=== PATIENT | female | born 1960 | race Caucasian/White ===

== ENCOUNTER 2017-08-04 18:29 | Observation (INO) | payer BC, MEDICARE ==
[2017-08-04] MEDS: NS 0.9% 1000 ML* 2,000 ML IV ONE ×2 (20:47→20:50)
--- NOTE | 2017-08-04 20:56 | RAD ---
INDICATION: Weakness COMPARISON: CT brain April 13, 2016 TECHNIQUE: Noncontrast axial source images were acquired from the skull base to the vertex. FINDINGS: Ventricles/sulci: The ventricles and cisterns are normal in size and configuration for age. Brain parenchyma: There is no focal parenchymal finding, evidence of intracranial mass, or intracranial mass effect. Intracranial hemorrhage:None. Extra-axial spaces: There are no abnormal extra axial fluid collections or evidence of extra-axial mass. Calvarium: There is no calvarial fracture or other calvarial abnormality. Scalp: There is no evidence of scalp or extracalvarial soft tissue abnormality. Paranasal sinuses/mastoid: The paranasal sinuses and mastoid air cells are clear. Other: None. IMPRESSION: NEGATIVE EXAMINATION
--- NOTE | 2017-08-04 20:57 | RAD ---
INDICATION: Weakness COMPARISON: None TECHNIQUE: A single PA image is submitted. FINDINGS: Bones/Soft Tissues: There are no acute bony findings. Cardiomediastinal: The cardiomediastinal silhouette is normal. Lungs: There are no infiltrates. Pleura: There are no pleural effusions. Other: None IMPRESSION: NO ACTIVE DISEASE.
[2017-08-04 20:59] LABS: Urine Bilirubin Negative (Negative); Urine Glucose 3+(>=500 mg/dL) (Negative); Urine Nitrite Negative (Negative)
[2017-08-04 21:14] LABS: Hematocrit 38 % (35-47); Hemoglobin 12.7 g/dl (12.0-16.0); Mean Corpuscular HGB Conc 33 g/dl (31-36); Mean Corpuscular Hemoglobin 29 pg (27-31); Mean Corpuscular Volume 88 fL (80-97); Mean Platelet Volume 10 um3 (7.4-10.4); Red Blood Count 4.35 10^6/ul (4.0-5.4); Red Cell Distribution Width 14 % (10.5-15); White Blood Count 10.8 10^3/ul (3.5-10.8)
[2017-08-04 21:31] LABS: ALT 20 U/L (7-52); AST 17 U/L (13-39); Albumin 3.6 g/dL (3.2-5.2); Alkaline Phosphatase 34 U/L (34-104); Anion Gap 4 mmol/L (2-11); BUN/Creatinine Ratio 11.4 (8-20); Blood Urea Nitrogen 9 mg/dL (6-24); C Reactive Protein 7.83 mg/L (< 5.00); CO2 Carbon Dioxide 31 mmol/L (22-32); Calcium 8.8 mg/dL (8.6-10.3); Chloride 104 mmol/L (101-111); Creatine Kinase 131 U/L (10-223); EGFR African American 96.8 (>60); EGFR Non-African American 75.3 (>60); Globulin 2.9 g/dL (2-4); Glucose 288 mg/dL (70-100); Lipase 32 U/L (11.0-82.0); Magnesium 1.4 mg/dL (1.9-2.7); Potassium 4.1 mmol/L (3.5-5.0); Sodium 139 mmol/L (133-145); Total Protein 6.5 g/dL (6.4-8.9)
[2017-08-04 21:40] LABS: B Type Natriuretic Peptide 268 pg/mL
[2017-08-04 22:00] LABS: Acetaminophen < 15 mcg/mL; Alcohol < 10 mg/dL (<10)
--- NOTE | 2017-08-04 22:11 | ED ---
Griffin Diaz Abhishek, scribed for Sandoval Tavarez MD on 08/04/17 at 2053 . Neurological HPI - HPI Summary HPI Summary: This patient is a 56 year old F presenting to [facility] from [facility] accompanied by male with a chief complaint of neurological deficit since yesterday. The CC is described as a sudden onset and worse since today morning. The patient rates the pain 0/10 in severity. Symptoms aggravated by nothing. Symptoms alleviated by nothing. Patient reports urinary frequency, unsteady gait, fatigue, dry throat, sore throat, RAMOS, productive cough (clear), ambulatory. Pt states she has fallen 2 times, once yesterday and once today, and that she was unable to get up for hours. Patient denies chills, neck pain, decreased appetite, and abd pain. PMHx of HTN, and DM. Pt denies PMHx of CHF. - History of Current Complaint Chief Complaint: EDWeakness Stated Complaint: FALL/DIZZY/SLURRED SPEECH Time Seen by Provider: 08/04/17 20:08 Hx Obtained From: Patient, Family/Freelance Court Stenographer Onset/Duration: Sudden Onset - yesterday, Started days ago - since yesterday, Still Present, Worse Since - today morning Timing: Constant Neurological Deficit Location: Generalized - weakness Pain Intensity: 0 Pain Scale Used: 0-10 Numeric Character: Weak, Motor Weakness - pt reports unsteady gait, Typical Migraine Aggravating: Nothing Alleviating: Nothing Associated Signs and Symptoms: Positive: Unsteady Gait, Headache, Weakness, Nothing - frequency in urination, fatigue, dry throat, sore throat. Negative chills, and abd pain. Negative: Decreased Oral Intake, Fever, Neck Pain/ Stiffness - Allergy/Home Medications Allergies/Adverse Reactions: Allergies Allergy/AdvReac Type Severity Reaction Status Date / Time No Known Allergies Allergy Verified 04/13/16 10:37 PMH/Surg Hx/FS Hx/Imm Hx Endocrine/Hematology History: Reports: Hx Diabetes Cardiovascular History: Reports: Hx Hypertension Denies: Hx Congenital Heart Disease, Hx Pacemaker/ICD Respiratory History: Denies: Hx Asthma Sensory History: Denies: Hx Hearing Aid Neurological History: Reports: Other Neuro Impairments/Disorders - "brain tumor " Psychiatric History: Reports: Hx Anxiety Denies: Hx Panic Disorder - Surgical History Surgery Procedure, Year, and Place: LAP JERRY/2 C SECTIONS/GLAUCOMA LASER SURGERY FROM [facility] - Immunization History Date of Tetanus Vaccine: Unk Date of Influenza Vaccine: None Infectious Disease History: No Infectious Disease History: Denies: Traveled Outside the [place] in Last 30 Days - Family History Known Family History: Positive: Other - CVA (mother) - Social History Alcohol Use: None Substance Use Type: Reports: Prescribed Substance Use Comment - Amount & Last Used: soma, xanax, lyrica Hx Tobacco Use: Yes Smoking Status (MU): Heavy Every Day Tobacco Smoker Review of Systems Positive: Fatigue. Negative: Fever, Chills Eyes: Negative ENT: Other - dry throat Positive: Sore Throat Cardiovascular: Negative Positive: Cough - productive (clear) Positive: Other - negative decreased appetite. Negative: Abdominal Pain Positive: frequency - urination Positive: Other - unsteady gait but ambulatory. Negative neck pain Skin: Negative Positive: Headache Psychological: Normal All Other Systems Reviewed And Are Negative: Yes Physical Exam - Summary Physical Exam Summary: General: well-appearing, no pain distress Skin: warm, color reflects adequate perfusion, dry Head: normal Eyes: EOMI, [place] ENT: oral mucosa dry Neck: supple, nontender Respiratory: rhonchi bilaterally Cardiovascular: RRR Abdomen: soft, nontender Bowel: present Musculoskeletal: trace pedal edema Neurological: generalized weakness, equal weakness on both sides, no sensation deficits Psychological: affect/mood appropriate Triage Information Reviewed: Yes Vital Signs On Initial Exam: Initial Vitals Temp Pulse Resp BP Pulse Ox 98.6 F 109 20 132/82 92 08/04/17 18:32 08/04/17 18:32 08/04/17 18:32 08/04/17 18:32 08/04/17 18:32 Vital Signs Reviewed: Yes Diagnostics - Vital Signs Vital Signs Temp Pulse Resp BP Pulse Ox 08/04/17 18:32 98.6 F 109 20 132/82 92 - Laboratory Lab Results: Lab Results 08/04/17 08/04/17 08/04/17 Range/Units 20:30 21:04 21:04 WBC (3.5-10.8) 10^3/ul RBC (4.0-5.4) 10^6/ul Hgb (12.0-16.0) g/dl Hct (35-47) % MCV (80-97) fL MCH (27-31) pg MCHC (31-36) g/dl RDW (10.5-15) % Plt Count (150-450) 10^3/ul MPV (7.4-10.4) um3 Neut % (Auto) (38-83) % Lymph % (Auto) (25-47) % [place] % (Auto) (1-9) % Eos % (Auto) (0-6) % Baso % (Auto) (0-2) % Absolute Neuts (auto) (1.5-7.7) 10^3/ul Absolute Lymphs (auto) (1.0-4.8) 10^3/ul Absolute Monos (auto) (0-0.8) 10^3/ul Absolute Eos (auto) (0-0.6) 10^3/ul Absolute Basos (auto) (0-0.2) 10^3/ul Absolute Nucleated RBC 10^3/ul Nucleated RBC % INR (Anticoag Therapy) 1.01 (0.89-1.11) APTT 38.8 H (26.0-36.3) seconds Sodium 139 (133-145) mmol/L Potassium 4.1 (3.5-5.0) mmol/L Chloride 104 (101-111) mmol/L Carbon Dioxide 31 (22-32) mmol/L Anion Gap 4 (2-11) mmol/L BUN 9 (6-24) mg/dL Creatinine 0.79 (0.51-0.95) mg/dL Est GFR ( Amer) 96.8 (>60) Est GFR (Non-Af Amer) 75.3 (>60) BUN/Creatinine Ratio 11.4 (8-20) Glucose 288 H (70-100) mg/dL Lactic Acid (0.5-2.0) mmol/L Calcium 8.8 (8.6-10.3) mg/dL Magnesium 1.4 L (1.9-2.7) mg/dL Total Bilirubin 0.30 (0.2-1.0) mg/dL AST 17 (13-39) U/L ALT 20 (7-52) U/L Alkaline Phosphatase 34 (34-104) U/L Ammonia Total Creatine Kinase 131 (10-223) U/L CK-MB (CK-2) 3.1 (0.6-6.3) ng/mL Troponin I 0.00 (<0.04) ng/mL C-Reactive Protein 7.83 H (< 5.00) mg/L B-Natriuretic Peptide ( - 100) pg/mL Total Protein 6.5 (6.4-8.9) g/dL Albumin 3.6 (3.2-5.2) g/dL Globulin 2.9 (2-4) g/dL Albumin/Globulin Ratio 1.2 (1-3) Lipase 32 (11.0-82.0) U/L TSH Pending Urine Color Yellow Urine Appearance Clear Urine pH 5.0 (5-9) Ur Specific [place] 1.009 L (1.010-1.030) Urine Protein Negative (Negative) Urine Ketones Negative (Negative) Urine Blood Negative (Negative) Urine Nitrate Negative (Negative) Urine Bilirubin Negative (Negative) Urine Urobilinogen Negative (Negative) Ur Leukocyte Esterase Negative (Negative) Urine Glucose 3+(>=500 mg/dl) H (Negative) Acetaminophen < 15 mcg/mL Serum Alcohol < 10 (<10) mg/dL 08/04/17 08/04/17 08/04/17 Range/Units 21:04 21:04 21:04 WBC 10.8 (3.5-10.8) 10^3/ul RBC 4.35 (4.0-5.4) 10^6/ul Hgb 12.7 (12.0-16.0) g/dl Hct 38 (35-47) % MCV 88 (80-97) fL MCH 29 (27-31) pg MCHC 33 (31-36) g/dl RDW 14 (10.5-15) % Plt Count 186 (150-450) 10^3/ul MPV 10 (7.4-10.4) um3 Neut % (Auto) 69.3 (38-83) % Lymph % (Auto) 19.8 L (25-47) % [place] % (Auto) 8.7 (1-9) % Eos % (Auto) 1.5 (0-6) % Baso % (Auto) 0.7 (0-2) % Absolute Neuts (auto) 7.5 (1.5-7.7) 10^3/ul Absolute Lymphs (auto) 2.1 (1.0-4.8) 10^3/ul Absolute Monos (auto) 0.9 H (0-0.8) 10^3/ul Absolute Eos (auto) 0.2 (0-0.6) 10^3/ul Absolute Basos (auto) 0.1 (0-0.2) 10^3/ul Absolute Nucleated RBC 0.01 10^3/ul Nucleated RBC % 0.1 INR (Anticoag Therapy) (0.89-1.11) APTT (26.0-36.3) seconds Sodium (133-145) mmol/L Potassium (3.5-5.0) mmol/L Chloride (101-111) mmol/L Carbon Dioxide (22-32) mmol/L Anion Gap (2-11) mmol/L BUN (6-24) mg/dL Creatinine (0.51-0.95) mg/dL Est GFR ( Amer) (>60) Est GFR (Non-Af Amer) (>60) BUN/Creatinine Ratio (8-20) Glucose (70-100) mg/dL Lactic Acid 2.1 H* (0.5-2.0) mmol/L Calcium (8.6-10.3) mg/dL Magnesium (1.9-2.7) mg/dL Total Bilirubin (0.2-1.0) mg/dL AST (13-39) U/L ALT (7-52) U/L Alkaline Phosphatase (34-104) U/L Ammonia TNP Total Creatine Kinase (10-223) U/L CK-MB (CK-2) (0.6-6.3) ng/mL Troponin I (<0.04) ng/mL C-Reactive Protein (< 5.00) mg/L B-Natriuretic Peptide 268 H ( - 100) pg/mL Total Protein (6.4-8.9) g/dL Albumin (3.2-5.2) g/dL Globulin (2-4) g/dL Albumin/Globulin Ratio (1-3) Lipase (11.0-82.0) U/L TSH Urine Color Urine Appearance Urine pH (5-9) Ur Specific [place] (1.010-1.030) Urine Protein (Negative) Urine Ketones (Negative) Urine Blood (Negative) Urine Nitrate (Negative) Urine Bilirubin (Negative) Urine Urobilinogen (Negative) Ur Leukocyte Esterase (Negative) Urine Glucose (Negative) Acetaminophen mcg/mL Serum Alcohol (<10) mg/dL Result Diagrams: 08/04/17 21:04 08/04/17 21:04 Lab Statement: Any lab studies that have been ordered have been reviewed, and results considered in the medical decision making process. - Radiology Chest X-ray Radiology Interpretation Completed By: Radiologist - CXR reveals NO ACTIVE DISEASE. ED physician has reviewed this radiology report and agrees. - CT Brain CT CT Interpretation Completed By: Radiologist - Brain CT reveals NEGATIVE EXAMINATION. ED physician has reviewed this radiology report and agrees. - EKG 2052 Cardiac Rate: NL EKG Interpretation: 96 bpm, normal ST with no elevation Course/Dx - Course Course Of Treatment: ADMIT HOSPITALIST. CRITICAL CARE TIME LESS THAN 30 MINUTES - Diagnoses Provider Diagnoses: Altered mental state, Weakness, Hypoxia Discharge - Discharge Plan Condition: Stable Disposition: ADMITTED TO [facility] Referrals: Rogelio Tellez MD [Primary Care Provider] - The documentation as recorded by the Griffin tyson Abhishek accurately reflects the service I personally performed and the decisions made by me, Sandoval Tavarez MD.
[2017-08-04 22:15] LABS: TSH (Thyroid Stimulating Horm) 0.46 mcIU/mL (0.34-5.60)
[2017-08-04] MEDS ORDERED: Dextrose 50% Syringe 50 ML* 25 GM/50 ML SYRINGE IV PUSH PRN (23:26)
[2017-08-04] MEDS ORDERED: Acetaminophen TAB* 325 MG PO PRN (23:26)
[2017-08-04] MEDS ORDERED: Ondansetron INJ* 2 MG/ML VIAL IV PRN (23:26)
[2017-08-04] MEDS ORDERED: Magnesium Sulfate 2 GM IV* 2 GM/50 ML BAG IVPB ONE (23:30)
[2017-08-04] MEDS ORDERED: Azithromycin IV(*) 500 MG in NS 0.9% 250 ML* 250 ML IVPB SCH (23:45)
[2017-08-05] MEDS: Albuterol 2.5 MG/3 ML NEB.SOL* (0.083%) INH PRN ×2 (00:15→06:09)
[2017-08-05 00:45] LABS: FIO2 3; PCO2 Arterial 59 mmHg (35-45)
--- NOTE | 2017-08-05 01:24 | HP ---
CC: Rogelio Tellez MD * HISTORY AND PHYSICAL: DATE OF ADMISSION: 08/04/17 PRIMARY CARE PROVIDER: Rogelio Tellez MD ATTENDING PHYSICIAN WHILE IN THE HOSPITAL: Marlon Begum MD * (report dictated by Blayne Huff NP). CHIEF COMPLAINT: 1. Drowsiness. 2. Difficulty with mentation. HISTORY OF PRESENT ILLNESS: Ms. Mendez is a 56-year-old female patient that comes into our ER today. According to the , he left around 5:30 this morning for work and when he left the patient, she was noted to be drowsy, lethargic. There were reports of cough. Recently, the patient did undergo a flu shot. There has been no reported fevers. There has been no chest pain or shortness of breath. Apparently, she did fall yesterday and once today. There were reports of her just not acting herself, was acting very drowsy, lethargic, not interactive, normally is very talkative according to the patient. The patient was reevaluated this afternoon by her and he was concerned and felt that she should come into the ER today to be evaluated because she just was not acting herself. The patient was evaluated down here. It was noted that she was requiring O2 at times. She said she has been taking her medications as prescribed. She does not have any changes in medications. However, she does feel that she is tired. She was evaluated in the ED. There was a concern for the altered mentation. We were asked to evaluate for admission. PAST MEDICAL HISTORY: Significant for: 1. Diabetes. 2. Chronic pain. 3. Anxiety. 4. Neuropathy. PAST SURGICAL HISTORY: 1. She has had a . 2. Laparoscopic cholecystectomy. HOME MEDICATIONS: According to the last list in our computer system includes: 1. Metformin 1000 mg p.o. b.i.d. 2. Klonopin 1 mg p.o. at bedtime as needed. 3. Januvia 50 mg daily. 4. Lyrica 50 mg p.o. b.i.d. 5. Opana 5 mg p.o. t.i.d. to 4 times a day. 6. Menthol 4% topical t.i.d. 7. Lantus 18 units subcu q.p.m. 8. Soma 350 mg p.o. b.i.d. as needed. 9. Albuterol 2 puffs inhalation every 6 hours as needed. 10. Xanax 1 mg p.o. every 6 hours. We will need to update this med record as again, she is unable to really give an accurate one. ALLERGIES TO MEDICATIONS: Include no known drug allergies. FAMILY HISTORY: Father had a history of cancer. SOCIAL HISTORY: The patient is a half pack a day smoker. She has smoked for about 40 years. She does not drink alcohol. There are no reports for recreational drugs. The patient's surrogate decision maker is her . REVIEW OF SYSTEMS: There is no documented fever. She does admit to having a cough at times. It has been productive of a yellow type sputum. She denies any recent sick contacts. Does admit to having a recent flu shot. No chest pain or shortness of breath. No abdominal pain. No nausea, no vomiting. She does admit to having some dysuria. The does state that she was incontinent earlier today. She could not hold her urine going to the bathroom. There was no loss of consciousness. No pruritus or skin ulcerations. Review of systems 14 completed, all others negative. PHYSICAL EXAMINATION GENERAL: At this time, Ms. Mendez is a 56-year-old female patient. She is seen in the ER stretcher. She does not appear to be in acute distress. She will awaken to her name. She will follow simple commands. She appears to be well nourished, well developed. VITAL SIGNS: Blood pressure 107/61 with a pulse of 87, respirations 14, O2 saturation now 96% on 2 L, temperature was 98.6. HEENT: Head is atraumatic, normocephalic. Eyes: Sclerae anicteric and not pale. Pupils are reactive to light. Throat: Oral mucosa appears to be dry. No oropharyngeal erythema. NECK: Supple. HEART: Sounds S1, S2. Regular rate and rhythm. No murmurs, rubs or gallops. LUNGS: She did have crackles in the right upper lobe. She had equal diaphragmatic expansion. ABDOMEN: Soft, flat, nontender. Bowel sounds are present. EXTREMITIES: Pulses were 2+ throughout. She is moving all 4 extremities. NEUROLOGIC: She will awaken. She is drowsy. She is oriented to person, place , and time. Her cook helper preserves are equal. Tongue is midline. Speech is slow, but it is clear, it is not slurred. There is no facial drooping. [id number] was intact bilaterally. No gross focal deficits. SKIN: Grossly intact. LABORATORY DATA/DIAGNOSTIC DATA: WBC 10.8, RBC of 4.35, hemoglobin 12.7, hematocrit of 38, platelet count of 186. INR of 1.01, PTT of 38.8. Sodium 139 , potassium 4.1, chloride 104, bicarbonate 30, BUN 9, creatinine 0.79, glucose 282. Lactic 2.1, calcium 8.8, mag 1.4, total bilirubin 0.3. AST 17, ALT 20, alk phos 34. Ammonia pending. CK 131, CK-MB 3.1, troponin 0. CRP 7.89. Albumin is 3.6, TSH of 0.46. Urine was obtained, showed 3+ glucose. Toxicology negative thus far, but drug screen is pending. Brain CT obtained today, which revealed negative exam. Chest x-ray showed no active disease. EKG shows a normal sinus rhythm, rate of 96. No ST elevation or T wave inversions. Old medical records were reviewed. ASSESSMENT AND PLAN: Ms. Mendez is a 56-year-old female patient, coming in to the ER today, complaints of drowsiness and fatigue, altered mental status. She will be admitted under observation status for: 1. Altered mental status. The etiology is unclear. She has no gross focal deficits on my exam here. I think this is probably polypharmacy related. I did offer Narcan. The patient refused this as she has had this in the past. She did not like the way it made her feel. When I walked in, was asking for her pain medication and I explained to her, I said we strictly need to hold her pain meds because this could be certainly contributing to her mentation. I would like get an ABG as well to make sure she is not holding on any CO2. She will awaken to her name and follow commands. I am doing neuro checks. If she is not improved, I would have a low threshold for MRI and Neurology consult, but I would like to hold the meds for 24 hours and see how she responds. Again , I do think this could be polypharmacy and she may need to reduce these medications. 2. Diabetes. We will put on lispro sliding scale. 3. Anxiety and depression, continue with supportive care. 4. Chronic pain. Again, I am holding her narcotics at this point. 5. Neuropathy. I will hold her meds for the time being, will be started once she is able. 6. DVT prophylaxis. She will be placed on heparin subcu. 7. Code status. Full code. 8. Fluids, electrolytes, and nutrition. She can have a consistent carb diet. 9. Hypomagnesemia. We will go ahead and replace her mag. 10. Bronchitis. I do suspect that she does have bronchitis. She does have some rhonchi in the upper lobe on the right side, so I am go ahead and put her on azithromycin. TIME SPENT: Time spent on the admission was approximately 60 minutes, greater than half that time was spent [id number] with the patient obtaining my history and physical, the other half time was time was spent going over the plan of care with the patient and implementing the plan of care. I did discuss the plan of care with my attending, Dr. Begum, he is in agreement. BLAYNE HUFF, GABRIEL [id number]/CPS #: [id number] MAURICIO
[2017-08-05] MEDS: Heparin VIAL(*) 5000 UNITS/ML VIAL (FIVE THOUSAND) SUBCUT SCH ×2 (05:24→14:31)
[2017-08-05 08:10] LABS: Hematocrit 36 % (35-47); Hemoglobin 11.8 g/dl (12.0-16.0); Mean Corpuscular HGB Conc 33 g/dl (31-36); Mean Corpuscular Hemoglobin 29 pg (27-31); Mean Corpuscular Volume 87 fL (80-97); Mean Platelet Volume 10 um3 (7.4-10.4); Red Blood Count 4.09 10^6/ul (4.0-5.4); Red Cell Distribution Width 14 % (10.5-15); White Blood Count 10.3 10^3/ul (3.5-10.8)
[2017-08-05 08:25] LABS: BUN/Creatinine Ratio 14.5 (8-20); Calcium 8.4 mg/dL (8.6-10.3); EGFR African American 113.2 (>60); Potassium 4.2 mmol/L (3.5-5.0)
[2017-08-05] MEDS: Insulin LISPRO* 1 UNITS UNIT SUBCUT SCH ×2 (08:48→12:31)
--- NOTE | 2017-08-05 09:19 | PN ---
Subjective Date of Service: 08/05/17 Interval History: C/O pain in her legs, requests narcotics and clonazepam. Objective Active Medications: Acetaminophen (Tylenol Tab*) 650 mg PO Q4H PRN PRN Reason: FEVER/PAIN Last Admin: 08/05/17 05:23 Dose: 650 mg Albuterol (Ventolin 2.5 Mg/3 Ml Neb.Allie*) 2.5 mg INH Q2H PRN PRN Reason: SOB/WHEEZING Last Admin: 08/05/17 06:09 Dose: 2.5 mg Clonazepam (Klonopin Tab(*)) 0.5 mg PO TID [facility] Dextrose (D50w Syringe 50 Ml*) 12.5 gm IV PUSH .FOR FS < 60 - SS PRN PRN Reason: FS < 60 Heparin Sodium (Porcine) (Heparin Vial(*)) 5,000 units SUBCUT Q8HR [facility] Last Admin: 08/05/17 05:24 Dose: 5,000 units Azithromycin 500 mg/ Sodium (Chloride) 250 mls @ 250 mls/hr IVPB Q24H [facility] Last Admin: 08/04/17 23:54 Dose: 250 mls/hr Insulin Glargine (Lantus(*)) 18 units SUBCUT QPM [facility] Insulin Human Lispro (Humalog*) 0 units SUBCUT AC MARK PRN Reason: Protocol Last Admin: 08/05/17 08:48 Dose: 6 units Ondansetron HCl (Zofran Inj*) 4 mg IV Q6H PRN PRN Reason: NAUSEA Vital Signs 08/04/17 08/05/17 08/05/17 23:30 00:00 00:01 Temperature Pulse Rate 88 89 Respiratory 18 19 Rate Blood Pressure 102/56 100/45 (mmHg) O2 Sat by Pulse 99 99 Oximetry 08/05/17 08/05/17 08/05/17 00:02 00:16 00:30 Temperature Pulse Rate 89 91 92 Respiratory 21 21 22 Rate Blood Pressure 118/65 (mmHg) O2 Sat by Pulse 99 100 99 Oximetry 08/05/17 08/05/17 08/05/17 00:52 05:18 06:09 Temperature 97.6 F 98.0 F Pulse Rate 94 101 97 Respiratory 18 18 22 Rate Blood Pressure 125/68 130/73 (mmHg) O2 Sat by Pulse 95 95 98 Oximetry 08/05/17 08/05/17 06:12 07:21 Temperature 98.5 F Pulse Rate 97 86 Respiratory 98 14 Rate Blood Pressure 107/51 (mmHg) O2 Sat by Pulse 20 92 Oximetry Oxygen Devices in Use Now: None, Nasal Cannula Appearance: Head partly up in bed, eyes closed. Responds in a soft voice. ? looks comfortable not moving. Eyes: No Scleral Icterus Ears/Nose/Mouth/Throat: Clear Oropharnyx, Mucous Membranes Moist Neck: NL Appearance and Movements; NL JVP, No Thyroid Enlargement, Masses Respiratory: Symmetrical Chest Expansion and Respiratory Effort, Clear to Auscultation, Clear to Percussion Cardiovascular: NL Sounds; No Murmurs; No JVD, RRR, No Edema, - Abdominal: NL Sounds; No Tenderness; No Distention, No Hepatosplenomegaly, - Extremities: No Edema, No Clubbing, Cyanosis, - Skin: No Rash or Ulcers, No Nodules or Sclerosis, - Neurological: Alert and Oriented x 3, NL Sensation Result Diagrams: 08/05/17 07:46 08/05/17 07:46 Additional Lab and Data: Lab Results 08/04/17 08/04/17 08/04/17 Range/Units 20:30 21:04 21:04 WBC (3.5-10.8) 10^3/ul RBC (4.0-5.4) 10^6/ul Hgb (12.0-16.0) g/dl Hct (35-47) % MCV (80-97) fL MCH (27-31) pg MCHC (31-36) g/dl RDW (10.5-15) % Plt Count (150-450) 10^3/ul MPV (7.4-10.4) um3 Neut % (Auto) (38-83) % Lymph % (Auto) (25-47) % [place] % (Auto) (1-9) % Eos % (Auto) (0-6) % Baso % (Auto) (0-2) % Absolute Neuts (auto) (1.5-7.7) 10^3/ul Absolute Lymphs (auto) (1.0-4.8) 10^3/ul Absolute Monos (auto) (0-0.8) 10^3/ul Absolute Eos (auto) (0-0.6) 10^3/ul Absolute Basos (auto) (0-0.2) 10^3/ul Absolute Nucleated RBC 10^3/ul Nucleated RBC % INR (Anticoag Therapy) 1.01 (0.89-1.11) APTT 38.8 H (26.0-36.3) seconds Sodium 139 (133-145) mmol/L Potassium 4.1 (3.5-5.0) mmol/L Chloride 104 (101-111) mmol/L Carbon Dioxide 31 (22-32) mmol/L Anion Gap 4 (2-11) mmol/L BUN 9 (6-24) mg/dL Creatinine 0.79 (0.51-0.95) mg/dL Est GFR ( Amer) 96.8 (>60) Est GFR (Non-Af Amer) 75.3 (>60) BUN/Creatinine Ratio 11.4 (8-20) Glucose 288 H (70-100) mg/dL Lactic Acid (0.5-2.0) mmol/L Calcium 8.8 (8.6-10.3) mg/dL Magnesium 1.4 L (1.9-2.7) mg/dL Total Bilirubin 0.30 (0.2-1.0) mg/dL AST 17 (13-39) U/L ALT 20 (7-52) U/L Alkaline Phosphatase 34 (34-104) U/L Ammonia Total Creatine Kinase 131 (10-223) U/L CK-MB (CK-2) 3.1 (0.6-6.3) ng/mL Troponin I 0.00 (<0.04) ng/mL C-Reactive Protein 7.83 H (< 5.00) mg/L B-Natriuretic Peptide ( - 100) pg/mL Total Protein 6.5 (6.4-8.9) g/dL Albumin 3.6 (3.2-5.2) g/dL Globulin 2.9 (2-4) g/dL Albumin/Globulin Ratio 1.2 (1-3) Lipase 32 (11.0-82.0) U/L TSH Pending Urine Color Yellow Urine Appearance Clear Urine pH 5.0 (5-9) Ur Specific Basco 1.009 L (1.010-1.030) Urine Protein Negative (Negative) Urine Ketones Negative (Negative) Urine Blood Negative (Negative) Urine Nitrate Negative (Negative) Urine Bilirubin Negative (Negative) Urine Urobilinogen Negative (Negative) Ur Leukocyte Esterase Negative (Negative) Urine Glucose 3+(>=500 mg/dl) H (Negative) Acetaminophen < 15 mcg/mL Serum Alcohol < 10 (<10) mg/dL 08/04/17 08/04/17 08/04/17 Range/Units 21:04 21:04 21:04 WBC 10.8 (3.5-10.8) 10^3/ul RBC 4.35 (4.0-5.4) 10^6/ul Hgb 12.7 (12.0-16.0) g/dl Hct 38 (35-47) % MCV 88 (80-97) fL MCH 29 (27-31) pg MCHC 33 (31-36) g/dl RDW 14 (10.5-15) % Plt Count 186 (150-450) 10^3/ul MPV 10 (7.4-10.4) um3 Neut % (Auto) 69.3 (38-83) % Lymph % (Auto) 19.8 L (25-47) % [place] % (Auto) 8.7 (1-9) % Eos % (Auto) 1.5 (0-6) % Baso % (Auto) 0.7 (0-2) % Absolute Neuts (auto) 7.5 (1.5-7.7) 10^3/ul Absolute Lymphs (auto) 2.1 (1.0-4.8) 10^3/ul Absolute Monos (auto) 0.9 H (0-0.8) 10^3/ul Absolute Eos (auto) 0.2 (0-0.6) 10^3/ul Absolute Basos (auto) 0.1 (0-0.2) 10^3/ul Absolute Nucleated RBC 0.01 10^3/ul Nucleated RBC % 0.1 INR (Anticoag Therapy) (0.89-1.11) APTT (26.0-36.3) seconds Sodium (133-145) mmol/L Potassium (3.5-5.0) mmol/L Chloride (101-111) mmol/L Carbon Dioxide (22-32) mmol/L Anion Gap (2-11) mmol/L BUN (6-24) mg/dL Creatinine (0.51-0.95) mg/dL Est GFR ( Amer) (>60) Est GFR (Non-Af Amer) (>60) BUN/Creatinine Ratio (8-20) Glucose (70-100) mg/dL Lactic Acid 2.1 H* (0.5-2.0) mmol/L Calcium (8.6-10.3) mg/dL Magnesium (1.9-2.7) mg/dL Total Bilirubin (0.2-1.0) mg/dL AST (13-39) U/L ALT (7-52) U/L Alkaline Phosphatase (34-104) U/L Ammonia TNP Total Creatine Kinase (10-223) U/L CK-MB (CK-2) (0.6-6.3) ng/mL Troponin I (<0.04) ng/mL C-Reactive Protein (< 5.00) mg/L B-Natriuretic Peptide 268 H ( - 100) pg/mL Total Protein (6.4-8.9) g/dL Albumin (3.2-5.2) g/dL Globulin (2-4) g/dL Albumin/Globulin Ratio (1-3) Lipase (11.0-82.0) U/L TSH Urine Color Urine Appearance Urine pH (5-9) Ur Specific Basco (1.010-1.030) Urine Protein (Negative) Urine Ketones (Negative) Urine Blood (Negative) Urine Nitrate (Negative) Urine Bilirubin (Negative) Urine Urobilinogen (Negative) Ur Leukocyte Esterase (Negative) Urine Glucose (Negative) Acetaminophen mcg/mL Serum Alcohol (<10) mg/dL Assess/Plan/Problems-Billing Assessment: - Patient Problems (1) Lethargy Current Visit: Yes Status: Acute Code(s): R53.83 - OTHER FATIGUE SNOMED Code(s): 224611026 Comment: Likely related to multiple sedating meds. Hold mirtazapine, oxymorphone. Half-dose of her clonazepam. (2) Chronic pain Current Visit: Yes Status: Acute Code(s): G89.29 - OTHER CHRONIC PAIN SNOMED Code(s): 24415003 Comment: Hold oxymorphone due to lethargy, hypercarbia. (3) Hypercarbia Current Visit: Yes Status: Acute Code(s): R06.89 - OTHER ABNORMALITIES OF BREATHING SNOMED Code(s): 58706960 Comment: Repeat ABG's. Hold sedating meds except for half-dose clonazepam. (4) Tobacco abuse Current Visit: Yes Status: Acute Code(s): Z72.0 - TOBACCO USE SNOMED Code( s): 284568977 Comment: Pt advised to quit smoking and avoid second hand smoke. (5) Diabetes Current Visit: Yes Status: Acute Code(s): E11.9 - TYPE 2 DIABETES MELLITUS WITHOUT COMPLICATIONS SNOMED Code(s): 18546950 Comment: Lantus and SSI ordered.
[2017-08-05 09:58] LABS: PCO2 Arterial 51 mmHg (35-45)
[2017-08-05] MEDS: clonazePAM TAB(*) 0.5 MG PO SCH ×2 (10:02→14:29)
[2017-08-05] MEDS: oxyCODONE TAB* 5 MG TAB PO PRN ×2 (12:30→16:30)
[2017-08-05 13:54] LABS: Urine Bilirubin Negative (Negative); Urine Glucose 3+(>=500 mg/dL) (Negative); Urine Nitrite Negative (Negative)
[2017-08-05 14:15] LABS: Benzodiazepine Urine Screen None Detected (None Detect)
[2017-08-05 16:38] VITALS: BP 113/56
--- NOTE | 2017-08-05 17:03 | PN ---
Progress Note - Progress Note Date of Service: 08/05/17 Note: Patient seen again at 16:45. She is requesting dishcarge. She is standing by her bed, alert, in good spirits. She is breathing quietly and comfortably. Her affect is appropriate. She is a completely different person than she was this AM. She is very concerned about finding out what happened to her. She uses an electric safe to dispense her medications. She filled it about 2 weeks ago. She took nothing other than what her safe dispenses. She has electric heat--no fumes. Her doen't smoke. She is trying to quit, smokes 6 cigarettes per day. Pt advised to ask Dr. Tellez about a sleep lab study.
[2017-08-05] MEDS ORDERED: Insulin GLARGINE(*) 1 UNITS UNIT SUBCUT SCH (18:00)
--- NOTE | 2017-08-06 01:06 | DS ---
CC: Dr. Tellez DISCHARGE SUMMARY: DATE OF ADMISSION: 08/05/17 DATE OF DISCHARGE: 08/05/17 HISTORY: This 56-year-old woman presented with drowsiness and confusion. When I saw her in the [facility] on the day of discharge, she was very lethargic. She was able to answer questions, but was sukhjinder dly moving and really did not open her eyes when she spoke to me. She had a very flat affect. We gave her oxycodone 5 mg instead of her Opana 5 mg. She thinks she may be withdrawing some as it would be about half the dose of Opana. Sometime in the afternoon, she completely recovered. I saw her at 4:45. She was a completely diffe rent person than she was in the morning. She was standing up by the bed. She was very personable a nd alert without the slightest sign of sedation. I note she had two blood gases, which showed some hypercarbia, it was nearly resolved on the second one. Base access was low. 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 I do not think it was the primary culprit. She is not having a COPD exacerbation. She has clinically mild COPD if any. She c ontinues to smoke, but is trying to quit and is down to 6 cigarettes a day. I know she has electric heat in her home, so there is no source of fumes. Her does not smoke. There has been no changes in her medications. She has an electric safe which dispenses her medicati ons. She filled it herself about 2 weeks ago. She takes nothing other than what the safe dispenses . I think it is possible that she has sleep apnea and had a seizure while sleeping the night before he r admission and took about 30 hours or so to recover. I do not have an alternate explanation at thi s time time. A sleep lab study certainly might be helpful. FINAL DIAGNOSES: 1. Confusion and sedation with hypercarbia. 2. Chronic pain. 3. Tobacco abuse. 4. Diabetes. The patient was advised to check her blood sugar more than once a day, which has been her normal. I suggested 3 or 4 times a day. She will try to do that. DISCHARGE MEDICATIONS: 1. Metformin, a total of 2500 mg a day in divided doses. 2. Albuterol inhaler 2 puffs every 6 hours p.r.n. 3. Sitagliptin 100 mg daily. 4. Pregabalin 50 mg b.i.d. 5. Glargine insulin 50 units every evening. 6. Oxymorphone 5 mg 4 times a day. 7. Clonazepam 1 mg h.s. p.r.n. 8. Mirtazapine 30 mg h.s. 9. Gabapentin 600 mg 4 times a day p.r.n. I would recommend a sleep lab study for this person. [id number]/[facility] #: [id number]
== END 2017-08-05 18:00 | disposition home or self-care (01) ==
LOC: ED 18:29 → MED 23:24 → OBSVTOIN 08-05 16:54 → INTOOBSV 08-05 16:54
PROVIDERS: ADMIT Hospitalist; ATTEND Internal Medicine
DX: R41.0 Disorientation, unspecified (principal); R53.83 Other fatigue; R06.89 Other abnormalities of breathing; G89.29 Other chronic pain; E11.9 Type 2 diabetes mellitus without complications; F17.210 Nicotine dependence, cigarettes, uncomplicated; Z79.899 Other long term (current) drug therapy; G62.9 Polyneuropathy, unspecified; F41.8 Other specified anxiety disorders; E83.42 Hypomagnesemia; J40 Bronchitis, not specified as acute or chronic; M79.605 Pain in left leg; M79.604 Pain in right leg
CPT/HCPCS: 36415; 36600; 70450; 71010; 80048; 80053; 80307; 80320; 80329; 81003; 82140; 82550; 82553; 82803; 83605; 83690; 83735; 83880; 84443; 84484; 85025; 85610; 85730; 86140; 87086; 93005; 94640; 94760; 96361; 96365; 96367; 96372; A9270-GY; G0378; G0480; J0456; J1644; J3475

== ENCOUNTER 2019-01-12 16:47 | Emergency (ER) | payer MEDICARE, OTHER ==
[2019-01-12] MEDS ORDERED: Naproxen TAB* 250 MG PO ONE (16:59)
[2019-01-12] MEDS ORDERED: Tetan/Diph/Pertus SYR(Tdap)* 0.5 ML SYR(BOOSTRIX) use SYR IM ONE (16:59)
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
--- OUTSIDE RECORDS SUMMARY | 2019-01-12 17:15 | XMS REPORT | Continuity of Care Document ---
:1960 External Reference #:[id number] Author Name Aston Castellano M.D. Address [address] [place] [address] Care Team Providers Name Role Phone Julio Tellez M.D. Primary Care Physician Unavailable Payers Date Identification Numbers Payment Provider Subscriber Policy Number: [id number] [facility] Wally Mendez PayID: [id number] [address] [address] [place] [address] Policy Number: [id number] Medicare - NGS Jeanette Mendez PayID: [id number] [address] [place] [address] Advance Directives Description No Information Available Problems Date Description Provider Status Onset: Type 2 diabetes mellitus Active Onset: Restless legs syndrome Active Onset: 01/31/2017 Anxiety Active Onset: 07/31/2017 Chronic pain Active Onset: 01/31/2017 Cough variant asthma Active Onset: 01/31/2017 Diabetic neuropathy Active Onset: 01/31/2017 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 Active Onset: 12/18/2018 Ocular hypertension Aston Castellano M.D. 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 ETOH Use Denies alcohol use Recreational Drug Use Denies Drug Use Tobacco Use Start: Unknown Light tobacco smoker (10 or fewer cigarettes/day) Smoking Status Reviewed: 12/18/18 Light tobacco smoker (10 or fewer cigarettes/day) Allergies, Adverse Reactions, Alerts Date Description Reaction Status Severity Comments 12/18/2018 Dapagliflozin Active 12/18/2018 Nicotine Active 01/01/2016 NKDA Inactive Medications Medication Date Status Form Strength Qnty SIG Indications Ordering Provider Ventolin HFA / Active Aerosol 108(90Bas 2 puffs by J45.991 Unknown 0000 e) mouth four mcg/Act times a day as needed Motrin Ib / Active Tablets 200mg 1-2 twice a day Unknown 0000 as needed Clonazepam / Active Tablets 1mg Take 1 2 To 1 Unknown 0000 Tablet By Mouth Twice Daily as Needed Maximum Daily Dose 2 Januvia / Active Tablets 100mg Take 1 Tablet Unknown 0000 By Mouth Every Day Metformin HCL / Active Tablets 1000mg Take 1 Tablet Unknown 0000 By Mouth Before Breakfast, Take 1/2 Tablet Before Lunch And Take 1 Tablet By Mouth Before Dinner Lantus / Active Solution 100Unit/M Inject 50 Units Unknown Solostar 0000 Pen-Injec L Subcutaneously t (Under The Skin) Every Day AT Bedtime Suboxone / Active Film 8-2mg [place], 0000 Julio Osuna M.D. Gabapentin / Active Capsules 300mg Take 1 Capsule Unknown 0000 By Mouth Four Times Daily Mirtazapine / Active Tablets 45mg Take 1 Tablet Unknown 0000 By Mouth AT Bedtime Lovastatin / Active Tablets 20mg Take One Tablet Unknown 0000 By Mouth AT Bedtime Repaglinide / Active Tablets 1mg Take 1 Tablet Unknown 0000 By Mouth Before Meals 3 Times Daily Sertraline / Active Tablets 25mg Take One Tablet Unknown HCL 0000 By Mouth Every Morning Sertraline / Hx Tablets 50mg Take One Tablet Unknown HCL 0000 - By Mouth Every Day 2019 Mirtazapine / Hx Tablets 30mg Take One Tablet Unknown 0000 - By Mouth AT 12/17/ Bedtime 2019 Immunizations Description No Information Available Vital Signs Description No Information Available Results Description No Information Available Procedures Date Code Description Status 05/03/2010 64072 Iridotomy/Iredectomy By Laser Surgery Completed 04/22/2010 63061 Iridotomy/Iredectomy By Laser Surgery Completed 04/08/2010 52162 Scanning Laser W/Interp And Report Completed 03/27/2010 55770 Fundus Photography With Interpretation And Report Completed 03/27/2010 74474 New Patient Comprehensive Exam Completed 02/22/2005 31573 Cancelled Appointment Completed 01/07/2005 03363 Cancelled Appointment Completed 12/21/2004 60775 Fundus Photography With Interpretation And Report Completed 12/21/2004 47938 Determination Of Refractive State Completed 12/21/2004 85483 Est Patient Comprehensive Exam Completed 11/26/2004 13936 Rescheduled Appointment Completed Encounters Type Date Location Provider Dx Diagnosis Office Visit 04/08/2010 Aston Castellano, Aston Castellano, 365.20 Primary Angle 11:30a , yolie Reynoso Closure Glaucoma Plan of Treatment 12/18/2018 - Aston Castellano M.D.H40.053 Ocular hypertension, bilateralComments :Smoking can increase the risk of developing or worsening any eye related disease, as well as affect your overall health. If you are a smoker, we strongly recommend that you quit.If you are not a smoker, we strongly recommend that you do not start. You have Ocular Hypertension in both eyes. This means that your eye pressure is higher than average, but you have not been diagnosed with Glaucoma.Follow up:3 Month Follow Up IOP Check Gonio PACH At your next visit, we are not planning to dilate your eyes.However, if you have any changes in your vision or new symptoms, there are certain situations that require us to dilate your eyes. If Dr. Castellano requests any additional testing, that may require extra time. If you have any questions before your next appointment, please call our office at .[phone] Type 2 diabetes mellitus with mild nonproliferative diabetic retinopathy without macular edema, bilateralComments:I can detect diabetic changes in your eyes. Proper control of your diabetes is important for the health of your eyes. It is important that you keep all of your follow up appointments. Dr. Castellano has sent a report to your primary care doctor, letting them know the current status of your retina.H25.13 Age-related nuclear cataract, bilateralComments:You have been diagnosed with cataracts. If you are happy with your vision as it is now, then we willsee you at your next scheduled appointment. If you feel like your vision is getting worse before your scheduled appointment, please call Dalila or Sherry at [phone].
[2019-01-12] MEDS ORDERED: oxyCODONE/Acetamin 5/325 MG* TAB PO ONE (18:08)
[2019-01-12 18:25] VITALS: BP 127/55
== END 2019-01-12 18:24 | disposition home or self-care (01) ==
LOC: ED 16:47
DX: S50.811A Abrasion of right forearm, initial encounter (principal); S62.607A Fracture of unspecified phalanx of left little finger, initial encounter for closed fracture; V49.49XA Driver injured in collision with other motor vehicles in traffic accident, initial encounter; Y92.410 Unspecified street and highway as the place of occurrence of the external cause; E11.9 Type 2 diabetes mellitus without complications; I10 Essential (primary) hypertension; F17.210 Nicotine dependence, cigarettes, uncomplicated; Z88.5 Allergy status to narcotic agent
CPT/HCPCS: 90715; 96372; 99282; A9270-GY

== ENCOUNTER 2020-07-02 16:31 | Inpatient (IN) ==
[2020-07-02 17:59] LABS: ABS Basophils 0.1 10^3/ul (0-0.2); ABS Eosinophils 0.1 10^3/ul (0-0.6); ABS Monocytes 1.1 10^3/ul (0-0.8); ABS Neutrophils 10.2 10^3/ul (1.5-7.7); Eosinophil % 0.4 %; Hematocrit 39 % (35-47); Hemoglobin 12.1 g/dL (12.0-16.0); Lymphocyte % 7.8 %; Mean Corpuscular HGB Conc 31 g/dL (31-36); Mean Corpuscular Hemoglobin 25 pg (27-31); Mean Corpuscular Volume 79 fL (80-97); Mean Platelet Volume 8.6 fL (7.4-10.4); Platelet Count 222 10^3/uL (150-450); Red Blood Count 4.94 10^6 /uL (3.70-4.87); Red Cell Distribution Width 18 % (10-15); White Blood Count 12.4 10^3/uL (3.5-10.8)
[2020-07-02 18:15] LABS: ALT 28 U/L (7-52); AST 27 U/L (13-39); Albumin 3.7 g/dL (3.2-5.2); Albumin/Globulin Ratio 1.2 (1-3); Alkaline Phosphatase 51 U/L (34-104); BUN/Creatinine Ratio 30.4 (8-20); Blood Urea Nitrogen 42 mg/dL (6-24); CO2 Carbon Dioxide 29 mmol/L (22-32); Calcium 8.6 mg/dL (8.6-10.3); Chloride 98 mmol/L (101-111); EGFR African American 47.4 (>60); EGFR Non-African American 39.1 (>60); Globulin 3.2 g/dL (2-4); Glucose 95 mg/dL (70-100); Sodium 132 mmol/L (135-145); Total Protein 6.9 g/dL (6.4-8.9)
[2020-07-02 18:22] LABS: Troponin I 0.03 ng/mL (<0.03)
[2020-07-02] MEDS ORDERED: Dextrose 50% Syringe 50 ml 25 GM/50 ML SYRINGE IV PUSH ONE (18:23)
[2020-07-02] MEDS ORDERED: CALCIUM GLUCONATE 1GM/50ML NS 1 GM/50 ML BAG IV ONE (18:23)
[2020-07-02] MEDS ORDERED: Albuterol 2.5mg/3 ml (0.083%) NEB.SOLN INH ONE (18:23)
[2020-07-02 18:35] LABS: Anion Gap 5 mmol/L (2-11); Potassium 6.3 mmol/L (3.5-5.0)
[2020-07-02] MEDS ORDERED: Furosemide 40 mg/4 ml IV VIAL IV ONE (19:51)
[2020-07-02] MEDS ORDERED: Albuterol HFA INHALER 8 gm MDI INH PRN (20:01)
[2020-07-02] MEDS ORDERED: Dextrose 50% Syringe 50 ml 25 GM/50 ML SYRINGE IV PUSH PRN (20:11)
[2020-07-02] MEDS: Enoxaparin 40 MG/0.4 ML SYR SUBCUT SCH (22:19)
[2020-07-02] MEDS: Buprenorp/Nalox 8-2 MG FILM SL FILM SCH (22:20)
[2020-07-02] MEDS ORDERED: Senna TAB 8.6 mg TAB PO PRN (22:56)
[2020-07-02] MEDS: Insulin GLARGINE 100 un/ml 10 ml VIAL SUBCUT SCH (23:00)
[2020-07-02] MEDS ORDERED: Insulin GLARGINE 100 un/ml 10 ml VIAL SUBCUT ONE (23:03)
[2020-07-02] MEDS ORDERED: Insulin GLARGINE 100 un/ml 10 ml VIAL ONE (23:15)
[2020-07-02] MEDS ORDERED: Senna TAB 8.6 mg TAB ONE (23:15)
[2020-07-02] MEDS: Ciprofloxacin 0.3% OPTH.SOL BTL BOTH EYES SCH (23:19)
[2020-07-03 01:45] LABS: BUN/Creatinine Ratio 27.7 (8-20); Calcium 8.7 mg/dL (8.6-10.3); EGFR African American 47.7 (>60); EGFR Non-African American 39.5 (>60)
[2020-07-03 02:03] LABS: Potassium 5.5 mmol/L (3.5-5.0)
[2020-07-03] MEDS: Ciprofloxacin 0.3% OPTH.SOL BTL BOTH EYES SCH ×7 (02:57→21:09)
[2020-07-03 07:13] LABS: Hematocrit 36 % (35-47); Hemoglobin 11.4 g/dL (12.0-16.0); Mean Corpuscular HGB Conc 32 g/dL (31-36); Mean Corpuscular Hemoglobin 25 pg (27-31); Mean Corpuscular Volume 79 fL (80-97); Mean Platelet Volume 8.6 fL (7.4-10.4); Platelet Count 211 10^3/uL (150-450); Red Blood Count 4.56 10^6 /uL (3.70-4.87); Red Cell Distribution Width 19 % (10-15); White Blood Count 11.7 10^3/uL (3.5-10.8)
[2020-07-03 07:44] LABS: BUN/Creatinine Ratio 27.8 (8-20); Calcium 8.3 mg/dL (8.6-10.3); EGFR African American 49.4 (>60); EGFR Non-African American 40.8 (>60); Potassium 5.4 mmol/L (3.5-5.0)
[2020-07-03] MEDS ORDERED: Perflutren Lipid Microsphere 3 ML VIAL ONE (07:53)
[2020-07-03] MEDS ORDERED: SitaGLIPtin 100 mg TAB (NF) PO SCH (09:00)
[2020-07-03] MEDS: Furosemide 40 mg/4 ml IV VIAL IV SLOW PU SCH ×2 (09:36→16:25)
[2020-07-03] MEDS: Buprenorp/Nalox 8-2 MG FILM SL FILM SCH ×3 (09:53→22:15)
[2020-07-03] MEDS ORDERED: Patiromer POWDER 8.4 GM PAK PO ONE (10:00)
[2020-07-03 13:15] LABS: BUN/Creatinine Ratio 27.1 (8-20); Calcium 8.6 mg/dL (8.6-10.3); EGFR African American 51.2 (>60); EGFR Non-African American 42.3 (>60)
[2020-07-03] MEDS ORDERED: Nicotine GUM 2MG FRUIT FLAVOR PO PRN (16:58)
[2020-07-03] MEDS: Enoxaparin 40 MG/0.4 ML SYR SUBCUT SCH (20:02)
[2020-07-03] MEDS: Nystatin TOP POWDER 15 GM BTL TOPICAL SCH (21:08)
[2020-07-03] MEDS: Insulin GLARGINE 100 un/ml 10 ml VIAL SUBCUT SCH (21:09)
[2020-07-04] MEDS: Ciprofloxacin 0.3% OPTH.SOL BTL BOTH EYES SCH ×6 (02:23→21:09)
[2020-07-04] MEDS ORDERED: Lactulose 30 ml UDC PO ONE (06:40)
[2020-07-04 06:45] LABS: ABS Eosinophils 0.1 10^3/ul (0-0.6); ABS Lymphocytes 1.3 10^3/ul (1.0-4.8); ABS Monocytes 1.2 10^3/ul (0-0.8); ABS Neutrophils 7.4 10^3/ul (1.5-7.7); Eosinophil % 1.3 %; Hematocrit 35 % (35-47); Hemoglobin 11.2 g/dL (12.0-16.0); Lymphocyte % 12.6 %; Mean Corpuscular HGB Conc 32 g/dL (31-36); Mean Corpuscular Hemoglobin 26 pg (27-31); Mean Corpuscular Volume 79 fL (80-97); Mean Platelet Volume 8.6 fL (7.4-10.4); Platelet Count 180 10^3/uL (150-450); Red Blood Count 4.41 10^6 /uL (3.70-4.87); Red Cell Distribution Width 18 % (10-15)
[2020-07-04 06:51] LABS: INR 1.31 (0.82-1.09)
[2020-07-04 07:00] LABS: Albumin 3.5 g/dL (3.2-5.2); Albumin/Globulin Ratio 1.2 (1-3); BUN/Creatinine Ratio 27.5 (8-20); C Reactive Protein 8.76 mg/L (<8.01); Calcium 8.1 mg/dL (8.6-10.3); EGFR African American 55.6 (>60); Potassium 4.6 mmol/L (3.5-5.0); Total Bilirubin 0.5 mg/dL (0.2-1.0); Total Protein 6.5 g/dL (6.4-8.9)
[2020-07-04 07:04] LABS: Rheumatoid Factor < 10 IU/mL (<15); Total Iron Binding Capacity 458 mcg/dL (250-450); Transferrin 327 mg/dL (203-362)
[2020-07-04 07:08] LABS: % Iron Saturation 4 % (15-55); Iron < 20 ug/dL (50-212); Unsaturated Iron Binding < 443 ug/dL
[2020-07-04 07:24] LABS: Ferritin 9.9 ng/mL (11-307)
[2020-07-04] MEDS: Buprenorp/Nalox 8-2 MG FILM SL FILM SCH ×2 (08:20→21:08)
[2020-07-04] MEDS: Nicotine PATCH 21 MG/24 HR PATCH TRANSDERM SCH ×2 (08:23→11:04)
[2020-07-04] MEDS: Nystatin TOP POWDER 15 GM BTL TOPICAL SCH ×2 (08:24→21:08)
[2020-07-04] MEDS: Furosemide 40 mg/4 ml IV VIAL IV SLOW PU SCH ×2 (08:24→17:30)
[2020-07-04 09:01] LABS: Urine Appearance Cloudy; Urine Bilirubin Negative (Negative); Urine Blood Negative (Negative); Urine Color Yellow; Urine Glucose Negative (Negative); Urine Ketones Negative (Negative); Urine Nitrite Negative (Negative); Urine Protein 1+(30 mg/dL) (Negative); Urine Specific Gravity 1.014 (1.010-1.030); Urine Urobilinogen Negative (Negative)
[2020-07-04 09:09] LABS: Erythrocyte Sed Rate 16 mm/Hr (0-29)
[2020-07-04 09:10] LABS: Urine Bacteria Absent (Absent); Urine Red Blood Cell Trace(0-2/hpf) (Absent); Urine Squamous Epithelial Cell Present (Absent); Urine White Blood Cell Trace(0-5/hpf) (Absent)
[2020-07-04] MEDS ORDERED: NS 0.9% 500 ml BAG 500 ML IV ONE (10:46)
[2020-07-04] MEDS ORDERED: Iodixanol (CONTRAST) 320 MG/ML 100 ML SDV IV ONE (12:10)
[2020-07-04] MEDS: Enoxaparin 40 MG/0.4 ML SYR SUBCUT SCH (21:07)
[2020-07-04] MEDS: Insulin GLARGINE 100 un/ml 10 ml VIAL SUBCUT SCH (21:08)
[2020-07-05] MEDS: Ciprofloxacin 0.3% OPTH.SOL BTL BOTH EYES SCH ×6 (02:47→20:34)
[2020-07-05] MEDS ORDERED: Iron Sucrose 20 MG/ML 5 ML VIAL IV PUSH SCH (09:00)
[2020-07-05] MEDS: Furosemide 40 mg/4 ml IV VIAL IV SLOW PU SCH ×2 (09:28→17:06)
[2020-07-05] MEDS: Nicotine PATCH 21 MG/24 HR PATCH TRANSDERM SCH (09:28)
[2020-07-05] MEDS: Buprenorp/Nalox 8-2 MG FILM SL FILM SCH ×2 (09:30→20:25)
[2020-07-05] MEDS: Iron Sucrose 200 MG in NS 0.9% 100 ml IVPB SCH (09:32)
[2020-07-05] MEDS: Nystatin TOP POWDER 15 GM BTL TOPICAL SCH ×2 (09:36→20:25)
[2020-07-05] MEDS: Insulin GLARGINE 100 un/ml 10 ml VIAL SUBCUT SCH (20:26)
[2020-07-06 00:16] LABS: BUN/Creatinine Ratio 26.4 (8-20); Calcium 7.8 mg/dL (8.6-10.3); EGFR African American 64.2 (>60); EGFR Non-African American 53.1 (>60); Magnesium 1.1 mg/dL (1.9-2.7); Potassium 3.8 mmol/L (3.5-5.0)
[2020-07-06] MEDS ORDERED: Magnesium Sulfate 2 gm BAG 2 GM/50 ML BAG IVPB ONE (00:36)
[2020-07-06] MEDS: Ciprofloxacin 0.3% OPTH.SOL BTL BOTH EYES SCH ×4 (01:55→15:20)
[2020-07-06] MEDS: KCL 10 MEQ/50 ML IVPREMIX 10 MEQ/50 ML BAG IV SCH ×2 (01:55→03:09)
[2020-07-06 06:59] LABS: ABS Eosinophils 0.2 10^3/ul (0-0.6); ABS Lymphocytes 1.3 10^3/ul (1.0-4.8); Hematocrit 35 % (35-47); Hemoglobin 11.1 g/dL (12.0-16.0); Lymphocyte % 13.3 %; Mean Corpuscular HGB Conc 32 g/dL (31-36); Mean Corpuscular Hemoglobin 25 pg (27-31); Mean Corpuscular Volume 78 fL (80-97); Mean Platelet Volume 8.4 fL (7.4-10.4); Platelet Count 169 10^3/uL (150-450); Red Blood Count 4.53 10^6 /uL (3.70-4.87); Red Cell Distribution Width 18 % (10-15); White Blood Count 9.5 10^3/uL (3.5-10.8)
[2020-07-06 07:21] LABS: BUN/Creatinine Ratio 27.3 (8-20); Calcium 7.9 mg/dL (8.6-10.3); EGFR African American 69.5 (>60); EGFR Non-African American 57.4 (>60); Potassium 3.8 mmol/L (3.5-5.0)
[2020-07-06] MEDS ORDERED: Furosemide 40 mg/4 ml IV VIAL ONE (08:55)
[2020-07-06 08:59] LABS: Magnesium 1.6 mg/dL (1.9-2.7)
[2020-07-06] MEDS ORDERED: Furosemide 40 mg/4 ml IV VIAL IV SLOW PU SCH (09:00)
[2020-07-06] MEDS: Buprenorp/Nalox 8-2 MG FILM SL FILM SCH (09:07)
[2020-07-06] MEDS: Nicotine PATCH 21 MG/24 HR PATCH TRANSDERM SCH (09:08)
[2020-07-06] MEDS: Nystatin TOP POWDER 15 GM BTL TOPICAL SCH (09:09)
[2020-07-06] MEDS: Furosemide 40 mg/4 ml IV VIAL IV SLOW PU SCH (09:10)
[2020-07-06] MEDS: Iron Sucrose 200 MG in NS 0.9% 100 ml IVPB SCH (09:20)
[2020-07-06] MEDS ORDERED: Magnesium Sulf 4 GM/100 ML IV 4,000 MG/100 ML BAG IVPB ONE (11:00)
[2020-07-06 12:00] VITALS: BP 105/51
[2020-07-07 17:31] LABS: Anti SSA/RO Antibody <0.2 U; SS-B/La Antibody <0.2 U; U1 RNP IgG Autoabs <0.2 U
== END 2020-07-06 18:29 | disposition home or self-care (01) | DRG 194 ==
LOC: ED 16:31 → MEDTELE 21:26
PROVIDERS: ADMIT Hospitalist; ATTEND Internal Medicine

== ENCOUNTER 2024-07-31 11:44 | Inpatient (IN) ==
[2024-07-31] MEDS: Propofol 10 mg/ml 100 ML BTL 1,000 MG/100 ML BTL IV SCH (11:59)
[2024-07-31 12:00] LABS: ABS Eosinophils 0.2 10^3/uL (0.0-0.5); ABS Lymphocytes 1.5 10^3/uL (1.0-4.8); ABS Monocytes 0.6 10^3/uL (0.0-0.9); ABS Neutrophils 10.8 10^3/uL (1.5-7.6); ABS Nucleated RBC 0.01 10^3/ul; Eosinophil % 1.3 %; Hematocrit 40.5 % (35-45); Hemoglobin 12.6 g/dL (11.5-14.3); Lymphocyte % 11.1 %; Mean Corpuscular Hemoglobin 27.4 pg (27-33); Mean Corpuscular Hgb Conc 31.1 g/dL (31-36); Mean Corpuscular Volume 87.9 fL (80-97); Mean Platelet Volume 9.9 fL (7.5-11.2); Nucleated Red Blood Cells % 0.1 %/100WBC (0.0-0.8); Platelet Count 142 10^3/uL (150-450); Red Blood Count 4.61 10^6/uL (3.63-4.92); Red Cell Distribution Width 15.6 % (12-17); White Blood Count 13.2 10^3/uL (3.8-11.8)
[2024-07-31 12:40] LABS: Urine Amorphous Crystals Present /HPF (Absent); Urine Appearance Turbid; Urine Bacteria 1+ /HPF (Absent); Urine Bilirubin Negative (Negative); Urine Blood 1+ (Negative); Urine Color Yellow; Urine Glucose 4+ (>=1000 mg/dL) (Negative); Urine Ketones Negative (Negative); Urine Nitrite Negative (Negative); Urine Protein 2+ (>=100 mg/dL) (Negative); Urine Red Blood Cell 2+(6-10/hpf) /HPF (0-Trace); Urine Squamous Epithelial Cell Present /HPF (Absent); Urine Urobilinogen Negative (Negative); Urine White Blood Cell 1+(6-10/hpf) /HPF (0-Trace); Urine pH 5.5 (5.0-8.0)
[2024-07-31] MEDS: Piperacillin/Tazobac 3.375 BAG 3.375 GM/100 ML BAG IV ONE (12:50)
[2024-07-31 12:56] LABS: Albumin 4.1 g/dL (3.2-5.2); Albumin/Globulin Ratio 1.1 (1-3); Calcium 8.7 mg/dL (8.6-10.3); Creatinine, Serum 1.53 mg/dL (0.51-0.95); Globulin 3.6 g/dL (2-4); Potassium 6.2 mmol/L (3.5-5.0); Total Protein 7.7 g/dL (6.4-8.9)
[2024-07-31] MEDS ORDERED: Sodium Bicarbonate 8.4% VIAL 1 MEQ/ML 50 ml VIAL (50 meq) ONE (12:58)
[2024-07-31] MEDS: Sodium Bicarbonate 8.4% SYR 50 ml SYRINGE IV ONE (13:07)
[2024-07-31 13:43] LABS: High Sensitivity Troponin 1 Hr 110 pg/mL (<15)
[2024-07-31 13:51] LABS: Magnesium 2.5 mg/dL (1.9-2.7)
[2024-07-31] MEDS: Albuterol/Ipratropium NEB.SOL (2.5/0.5 MG) 3 ML NEB.SOLN INH ONE (14:34)
[2024-07-31] MEDS: Midazolam 5 mg/5 ml VIAL 1 mg/ml 5 ml VIAL (5 mg) IV SLOW PU ONE (14:47)
[2024-07-31] MEDS: Sulfur Hexaflouride MICROSPHR 25 MG VIAL IV PRN (15:00)
[2024-07-31] MEDS: Chlorhexidine MOUTHWASH 0.12% 15 ML UDC TOPICAL SCH (15:00)
[2024-07-31] MEDS: Enoxaparin 40 MG/0.4 ML SYR SUBCUT SCH (15:00)
[2024-07-31 15:50] LABS: Calcium 7.6 mg/dL (8.6-10.3); Creatinine, Serum 1.52 mg/dL (0.51-0.95); Potassium 6.1 mmol/L (3.5-5.0); eGFR CKD-EPI 38.3 (>60)
[2024-07-31] MEDS: methylPREDNISolone SOD SUCC 40 mg/ml 1 ml VIAL IV SCH (17:00)
[2024-07-31] MEDS ORDERED: Dextrose 50% Syringe 50 ml 25 GM/50 ML SYRINGE IV PUSH PRN (17:13)
[2024-07-31 17:39] LABS: PCO2 Arterial 63 mmHg (35-45); PO2 Arterial 118 mmHg (80-100)
[2024-07-31] MEDS ORDERED: Albuterol/Ipratropium NEB.SOL (2.5/0.5 MG) 3 ML NEB.SOLN INH SCH (18:00)
[2024-07-31] MEDS: Furosemide 40 mg/4 ml IV VIAL IV SLOW PU ONE (18:10)
[2024-07-31] MEDS: Albuterol/Ipratropium NEB.SOL (2.5/0.5 MG) 3 ML NEB.SOLN INH SCH (19:01)
[2024-07-31 20:56] LABS: Calcium 7.8 mg/dL (8.6-10.3); Creatinine, Serum 1.64 mg/dL (0.51-0.95); Potassium 5.5 mmol/L (3.5-5.0)
[2024-07-31] MEDS: Azithromycin 500 mg/250 ml NS 500 MG/250 ML BAG IVPB SCH (21:12)
[2024-07-31] MEDS: cefTRIAXone 1 gm/50 mL D5W 1 GM/50 ML BAG IV SCH (21:13)
[2024-07-31] MEDS: fentaNYL 100 mcg/2 ml 50 MCG/ML VIAL IV SLOW PU PRN (21:49)
[2024-07-31] MEDS: Norepinephrine 4 MG/250mL D5W 4,000 MCG/250 ML BAG IV SCH (22:28)
[2024-07-31] MEDS: Iodixanol 320 (CONTRAST) 100 ML SDV IV ONE (23:37)
[2024-07-31] MEDS ORDERED: Iodixanol 320 (CONTRAST) 100 ML SDV IV SCH (23:45)
[2024-08-01 05:05] LABS: ABS Lymphocytes 0.7 10^3/uL (1.0-4.8); ABS Monocytes 0.6 10^3/uL (0.0-0.9); ABS Neutrophils 6.7 10^3/uL (1.5-7.6); Eosinophil % 0.1 %; Hematocrit 34.1 % (35-45); Hemoglobin 10.9 g/dL (11.5-14.3); Mean Corpuscular Hemoglobin 27.2 pg (27-33); Mean Corpuscular Volume 85.2 fL (80-97); Mean Platelet Volume 9.9 fL (7.5-11.2); Platelet Count 159 10^3/uL (150-450); Red Blood Count 4.01 10^6/uL (3.63-4.92); Red Cell Distribution Width 15.7 % (12-17); White Blood Count 8.1 10^3/uL (3.8-11.8)
[2024-08-01 05:58] LABS: Anion Gap 12 mmol/L (2-16); Blood Urea Nitrogen 39 mg/dL (6-24); CO2 Carbon Dioxide 26 mmol/L (22-32); Calcium 8.1 mg/dL (8.6-10.3); Chloride 99 mmol/L (101-111); Cholesterol 87 mg/dL; Creatinine, Serum 1.73 mg/dL (0.51-0.95); Glucose 247 mg/dL (70-100); HDL Cholesterol 23.6 mg/dL; LDL Cholesterol 23 mg/dL; Magnesium 2.4 mg/dL (1.9-2.7); Potassium 5.3 mmol/L (3.5-5.0); Sodium 137 mmol/L (135-145); Triglycerides 203 mg/dL; eGFR CKD-EPI 32.8 (>60)
[2024-08-01 06:20] LABS: High Sensitivity Troponin 3 Hr 436 pg/mL (<15)
[2024-08-01] MEDS: Enoxaparin 100 MG/ML SYR SUBCUT SCH (08:21)
[2024-08-01] MEDS ORDERED: Enoxaparin 40 MG/0.4 ML SYR SUBCUT SCH (09:00)
[2024-08-01] MEDS ORDERED: Succinylcholine 200 mg VIAL 20 mg/ml 10 ml VIAL (200 mg) ONE (11:45)
[2024-08-01] MEDS ORDERED: Etomidate 40 mg/20 ml (2 MG/ML) 20 ml VIAL (40 mg) ONE (11:45)
[2024-08-01] MEDS ORDERED: Midazolam 10 mg/10 ml VIAL 1 mg/ml 10 ml VIAL (10 mg) ONE (11:45)
[2024-08-01 16:26] LABS: % Iron Saturation 8 % (15-55); .Transferrin 184 mg/dL (203-362); Iron < 20 ug/dL (50-212); Total Iron Binding Capacity 258 mcg/dL (250-450); Unsaturated Iron Binding 238 ug/dL
[2024-08-01] MEDS: Nicotine PATCH 7 MG/24 HR PATCH TRANSDERM SCH (16:33)
[2024-08-01 16:35] LABS: TSH Ultra Thyroid Stim Horm 0.49 mcIU/mL (0.34-5.60)
[2024-08-01 16:41] LABS: Ferritin 280.4 ng/mL (11-307)
[2024-08-01] MEDS: Buprenorp/Nalox 8-2 MG FILM SL SCH (17:06)
[2024-08-01 17:18] LABS: High Sensitivity Troponin 3 Hr 246 pg/mL (<15)
[2024-08-01] MEDS: Furosemide 40 mg/4 ml IV VIAL IV ONE (18:13)
[2024-08-01] MEDS ORDERED: Buprenorp/Nalox 8-2 MG FILM SL SCH (21:00)
[2024-08-01] MEDS: Albuterol HFA INHALER 8 gm MDI INH PRN (23:47)
[2024-08-02 06:01] LABS: ABS Lymphocytes 0.7 10^3/uL (1.0-4.8); ABS Monocytes 0.7 10^3/uL (0.0-0.9); ABS Neutrophils 9.4 10^3/uL (1.5-7.6); Hematocrit 33.7 % (35-45); Hemoglobin 10.9 g/dL (11.5-14.3); Lymphocyte % 6.7 %; Mean Corpuscular Hemoglobin 27.5 pg (27-33); Mean Corpuscular Hgb Conc 32.3 g/dL (31-36); Mean Corpuscular Volume 85.1 fL (80-97); Mean Platelet Volume 9.2 fL (7.5-11.2); Platelet Count 183 10^3/uL (150-450); Red Blood Count 3.96 10^6/uL (3.63-4.92); Red Cell Distribution Width 15.6 % (12-17); White Blood Count 10.8 10^3/uL (3.8-11.8)
[2024-08-02 06:36] LABS: Calcium 8.3 mg/dL (8.6-10.3); Creatinine, Serum 1.48 mg/dL (0.51-0.95); Magnesium 2.4 mg/dL (1.9-2.7); Potassium 4.8 mmol/L (3.5-5.0); eGFR CKD-EPI 39.5 (>60)
[2024-08-02] MEDS: Insulin GLARGINE 100 un/ml 10 ml VIAL SUBCUT ONE (12:37)
[2024-08-02] MEDS: Albuterol/Ipratropium NEB.SOL (2.5/0.5 MG) 3 ML NEB.SOLN INH PRN (19:31)
[2024-08-02] MEDS: Albuterol/Ipratropium NEB.SOL (2.5/0.5 MG) 3 ML NEB.SOLN ONE (19:59)
[2024-08-02] MEDS: Buprenorp/Nalox 8-2 MG FILM SL ONE (20:35)
[2024-08-02] MEDS: Buprenorp/Nalox 8-2 MG FILM SL SCH (20:35)
[2024-08-02] MEDS ORDERED: Dextrose 50% Syringe 50 ml 25 GM/50 ML SYRINGE IV PUSH PRN (22:04)
[2024-08-03 06:26] LABS: ABS Lymphocytes 0.5 10^3/uL (1.0-4.8); ABS Monocytes 0.4 10^3/uL (0.0-0.9); ABS Neutrophils 7.5 10^3/uL (1.5-7.6); ABS Nucleated RBC 0.01 10^3/ul; Hemoglobin 11.4 g/dL (11.5-14.3); Mean Corpuscular Hemoglobin 27.7 pg (27-33); Mean Corpuscular Hgb Conc 32.5 g/dL (31-36); Mean Corpuscular Volume 85.4 fL (80-97); Mean Platelet Volume 8.9 fL (7.5-11.2); Nucleated Red Blood Cells % 0.1 %/100WBC (0.0-0.8); Platelet Count 213 10^3/uL (150-450); Red Cell Distribution Width 15.5 % (12-17); White Blood Count 8.4 10^3/uL (3.8-11.8)
[2024-08-03 07:15] LABS: Calcium 8.6 mg/dL (8.6-10.3); Creatinine, Serum 1.23 mg/dL (0.51-0.95); Magnesium 2.5 mg/dL (1.9-2.7); Potassium 5.4 mmol/L (3.5-5.0); eGFR CKD-EPI 49.4 (>60)
[2024-08-03] MEDS ORDERED: Insulin GLARGINE 100 un/ml 10 ml VIAL SUBCUT SCH (09:00)
[2024-08-03] MEDS: Insulin GLARGINE 100 un/ml 10 ml VIAL SUBCUT SCH (09:30)
[2024-08-03] MEDS: Enoxaparin 40 MG/0.4 ML SYR SUBCUT SCH (09:30)
[2024-08-03] MEDS ORDERED: Albuterol HFA INHALER 8 gm MDI INH PRN (18:05)
[2024-08-03] MEDS: Buprenorp/Nalox 8-2 MG FILM SL SCH (21:03)
[2024-08-04] MEDS: Furosemide 40 mg/4 ml IV VIAL ONE (04:26)
[2024-08-04] MEDS: Furosemide 20 mg/2 ml IV VIAL IV SLOW PU ONE (04:28)
[2024-08-04 06:17] LABS: ABS Lymphocytes 0.5 10^3/uL (1.0-4.8); ABS Monocytes 1.2 10^3/uL (0.0-0.9); ABS Neutrophils 10.2 10^3/uL (1.5-7.6); Eosinophil % 0.1 %; Hematocrit 35.3 % (35-45); Hemoglobin 11.1 g/dL (11.5-14.3); Lymphocyte % 4.6 %; Mean Corpuscular Hemoglobin 26.7 pg (27-33); Mean Corpuscular Hgb Conc 31.4 g/dL (31-36); Mean Corpuscular Volume 84.9 fL (80-97); Mean Platelet Volume 8.4 fL (7.5-11.2); Platelet Count 255 10^3/uL (150-450); Red Blood Count 4.16 10^6/uL (3.63-4.92); Red Cell Distribution Width 14.8 % (12-17)
[2024-08-04 06:49] LABS: Calcium 8.7 mg/dL (8.6-10.3); Creatinine, Serum 1.23 mg/dL (0.51-0.95); Potassium 4.8 mmol/L (3.5-5.0); eGFR CKD-EPI 49.4 (>60)
[2024-08-04] MEDS: Aspirin EC 81 mg TAB.EC (enteric coated) PO SCH (12:28)
[2024-08-04] MEDS: Senna TAB 8.6 mg TAB PO SCH ×2 (13:01→23:45)
[2024-08-04] MEDS: Nicotine PATCH 14 MG/24 HR PATCH TRANSDERM SCH (20:45)
[2024-08-04] MEDS ORDERED: Magnesium Hydroxide LIQ 30 ML UDC PO PRN (21:56)
[2024-08-04] MEDS: Magnesium Hydroxide LIQ 30 ML UDC PO ONE (23:45)
[2024-08-04] MEDS: NS 0.9% 1000 ml BAG 1,000 ML IV SCH (23:46)
[2024-08-05 06:07] LABS: ABS Eosinophils 0.2 10^3/uL (0.0-0.5); ABS Lymphocytes 0.8 10^3/uL (1.0-4.8); ABS Monocytes 1.3 10^3/uL (0.0-0.9); ABS Neutrophils 6.4 10^3/uL (1.5-7.6); ABS Nucleated RBC 0.01 10^3/ul; Eosinophil % 1.8 %; Hematocrit 34.3 % (35-45); Hemoglobin 11.1 g/dL (11.5-14.3); Lymphocyte % 9.4 %; Mean Corpuscular Hemoglobin 27.6 pg (27-33); Mean Corpuscular Hgb Conc 32.4 g/dL (31-36); Mean Platelet Volume 8.6 fL (7.5-11.2); Nucleated Red Blood Cells % 0.1 %/100WBC (0.0-0.8); Platelet Count 263 10^3/uL (150-450); Red Blood Count 4.04 10^6/uL (3.63-4.92); Red Cell Distribution Width 14.7 % (12-17); White Blood Count 8.6 10^3/uL (3.8-11.8)
[2024-08-05 06:56] LABS: Calcium 8.5 mg/dL (8.6-10.3); Creatinine, Serum 1.02 mg/dL (0.51-0.95); Magnesium 2.2 mg/dL (1.9-2.7); Potassium 4.9 mmol/L (3.5-5.0); eGFR CKD-EPI 61.8 (>60)
[2024-08-05] MEDS: fentaNYL 100 mcg/2 ml 50 MCG/ML VIAL IV SLOW PU ONE (11:55)
[2024-08-05] MEDS: Midazolam 10 mg/10 ml VIAL 1 mg/ml 10 ml VIAL (10 mg) IV SLOW PU ONE (11:55)
[2024-08-05] MEDS ORDERED: VERAPAMIL 2.5 MG/ML 2 ML VIAL ** 5 mg/2 ml ONE (14:02)
[2024-08-05] MEDS ORDERED: Heparin 1,000 UNIT/ML 10 ml (10,000 UNITS) CATHLAB/DIALYSIS ONE (14:03)
[2024-08-05] MEDS ORDERED: nitroGLYCERIN DRIP 25,000 MCG/250 ML BTL ONE (14:03)
[2024-08-05] MEDS ORDERED: Heparin 2 UNITS/ML 1000 mls 2,000 ML IV ONE (14:03)
[2024-08-05] MEDS ORDERED: Lidocaine 1% MPF 5 ML VIAL ONE (14:03)
[2024-08-05] MEDS ORDERED: Iohexol 350 (CONTRAST) 200 ML MDV IV ONE (14:04)
[2024-08-05] MEDS ORDERED: Midazolam 5 mg/5 ml VIAL 1 mg/ml 5 ml VIAL (5 mg) ONE (14:12)
[2024-08-05] MEDS ORDERED: fentaNYL 100 mcg/2 ml 50 MCG/ML VIAL ONE (14:12)
[2024-08-05] MEDS ORDERED: fentaNYL 250 mcg/5 ml 50 MCG/ML 5 ml VIAL (250 MCG) ONE (14:14)
[2024-08-05] MEDS: Magnesium Hydroxide LIQ 30 ML UDC PO SCH (16:40)
[2024-08-05] MEDS: Polyethylene Glycol 3350 17 GM PACKET PO SCH (16:40)
[2024-08-05] MEDS: NS 0.9% 1000 ml BAG 1,000 ML IV SCH (16:53)
[2024-08-05] MEDS: Furosemide 40 mg/4 ml IV VIAL IV ONE (17:41)
[2024-08-06 06:16] LABS: ABS Eosinophils 0.3 10^3/uL (0.0-0.5); ABS Lymphocytes 0.9 10^3/uL (1.0-4.8); ABS Monocytes 1.5 10^3/uL (0.0-0.9); ABS Neutrophils 7.1 10^3/uL (1.5-7.6); Eosinophil % 2.9 %; Hematocrit 34.6 % (35-45); Hemoglobin 11.3 g/dL (11.5-14.3); Lymphocyte % 9.2 %; Mean Corpuscular Hemoglobin 27.7 pg (27-33); Mean Corpuscular Hgb Conc 32.6 g/dL (31-36); Mean Corpuscular Volume 84.9 fL (80-97); Mean Platelet Volume 8.7 fL (7.5-11.2); Nucleated Red Blood Cells % 0.1 %/100WBC (0.0-0.8); Platelet Count 277 10^3/uL (150-450); Red Blood Count 4.07 10^6/uL (3.63-4.92); White Blood Count 9.8 10^3/uL (3.8-11.8)
[2024-08-06 06:35] LABS: Calcium 8.6 mg/dL (8.6-10.3); Creatinine, Serum 1.07 mg/dL (0.51-0.95); Magnesium 2.4 mg/dL (1.9-2.7); Potassium 5.1 mmol/L (3.5-5.0); eGFR CKD-EPI 58.4 (>60)
[2024-08-06] MEDS: Influenza Vaccine *TRI* 2024-25* 0.5 ML SYRINGE IM ONE (08:26)
[2024-08-06 15:45] VITALS: BP 91/63
[2024-08-07] MEDS ORDERED: Empagliflozin 25 MG TAB PO SCH (09:00)
== END 2024-08-06 15:50 | disposition home or self-care (01) | DRG 192 ==
LOC: ED 11:44 → EDHOLD 12:44 → SUATTDRO 12:44 → MEDTELE 12:59 → ICU 13:29 → MEDTELE 08-03 18:22
PROVIDERS: ADMIT Internal Medicine Critical Care Medicine; ATTEND Student in an Organized Health Care Education/Training Program